=== PATIENT | male | born 1945 | race Caucasian/White ===

== ENCOUNTER 2020-09-21 06:00 | Outpatient (RCR) | payer MEDICARE, SELFPAY | END 2020-10-13 23:59 | disposition home or self-care (01) | LOC: MPO 06:00 | PROVIDERS: Referring Provider Family Medicine; Visit Provider Family Medicine | DX: I69.354 Hemiplegia and hemiparesis following cerebral infarction affecting left non-dominant side (principal) | CPT/HCPCS: 97110; 97112; 97140; 97162; 97166; 97530; 97535 ==

== ENCOUNTER 2020-10-14 06:00 | Outpatient (RCR) | payer MEDICARE, SELFPAY | END 2020-11-13 23:59 | disposition home or self-care (01) | LOC: MPO 06:00 | PROVIDERS: Referring Provider Family Medicine; Visit Provider Family Medicine | DX: I69.354 Hemiplegia and hemiparesis following cerebral infarction affecting left non-dominant side (principal) | CPT/HCPCS: 97110; 97112; 97116; 97140; 97535 ==

== ENCOUNTER 2020-11-14 06:00 | Outpatient (RCR) | payer MEDICARE, SELFPAY | END 2020-12-14 23:59 | disposition home or self-care (01) | LOC: MPO 06:00 | PROVIDERS: Referring Provider Family Medicine; Visit Provider Family Medicine | DX: I69.354 Hemiplegia and hemiparesis following cerebral infarction affecting left non-dominant side (principal) | CPT/HCPCS: 97110; 97112; 97140 ==

== ENCOUNTER → 2020-12-22 15:24 | Outpatient (BNVA) | payer OTHER, SELFPAY | PROVIDERS: Visit Provider Specialist | DX: M25.519 Pain in unspecified shoulder (principal); M75.02 Adhesive capsulitis of left shoulder; M79.2 Neuralgia and neuritis, unspecified | CPT/HCPCS: 73030 ==

== ENCOUNTER 2021-05-10 10:27 | Emergency (ER) | payer OTHER, MEDICARE, SELFPAY ==
[2021-05-10 10:28] VITALS: BP 137/62; PULSE 73; RESP 27; TEMP 37.9; O2SAT 97; BMI 28.3
[2021-05-10 10:41] VITALS: O2SAT 96
[2021-05-10 10:50] VITALS: BP 137/62; PULSE 73; RESP 27; TEMP 37.9; O2SAT 96
--- NOTE | 2021-05-10 11:18 | XR_ITS ---
WS: [id number] Portable AP upright chest, 05/10/2021 Clinical Data: cough/covid Comparison: None. Findings: No nodules, masses or effusions are seen. The heart is normal. The pacemaker generator is i n the left axilla with 2 leads ending in the heart. The pulmonary vascularity is not increased. No p neumothorax is seen. There is left basilar pulmonary opacity in the retrocardiac region which may rep resent acute pneumonia. There are clips in the right supraclavicular region. Monitor leads are on the chest wall. XR/XR chest 1V portable [id number] Impression: 1. Left basilar pulmonary opacity which could represent left lower lobe pneumon ia. 2. Cardiac pacemaker.
--- NOTE | 2021-05-10 11:25 | W.ED.COVID ---
HPI - COVID General: Chief Complaint: COVID symptoms Stated Complaint: COVID COMPLICATIONS Time Seen by Provider: 05/10/21 10:32 Triage information: Has fever, cough or shortness of breath. Exposure to COVID + person last 14 days History of Present Illness: HPI Narrative: 75-year-old male presents emergency room tested positive for Covid 3 to 4 days ago at [facility]. Previously had a stroke and has some aphasia. He is able answer that he feels okay but he does not really give any further answers. His oxygen saturations are normal. 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) Treatment prior to arrival: none COVID Results: No Data to Display Review of Systems General: Reports: ROS unobtainable due to medical condition PFSH ED PFSH: Medical History Accelerated essential hypertension Conductive hearing loss Diabetic neuropathy Male erectile dysfunction Peripheral vascular disease Type 2 diabetes mellitus Type 2 diabetes mellitus with other circulatory complications Family History Father Congestive heart failure Mother Cancer Social History Alcohol intake: current Alcohol intake frequency: holidays/special occasions only Current occupational status: disabled Physical Exam Const: GENERAL APPEARANCE: cooperative and comfortable ORIENTATION/CONSCIOUSNESS: Yes awake HENMT: COMMON NORMALS: normocephalic, atraumatic and hearing grossly normal bilaterally HEAD & SCALP: normocephalic and atraumatic Neck/C-Spine: COMMON NORMALS: no JVD Resp: COMMON NORMALS: normal respiratory effort, No retractions, No use of accessory muscles and clear to auscultation bilaterally AUSCULTATION: clear to auscultation bilaterally Cardio: COMMON NORMALS: no JVD, regular rate, regular rhythm and No murmurs present (Cardio) RATE: regular rate RHYTHM: regular rhythm GI: COMMON NORMALS: Soft to palpation and No hepatosplenomegaly present AUSCULTATION: Yes normoactive bowel sounds PALPATION: Yes Soft to palpation, No Tenderness to palpation present (GI), No Guarding due to palpation present (GI) and Yes No hepatosplenomegaly present Extremity: COMMON NORMALS: normal to inspection, capillary refill normal, no clubbing, cyanosis or edema, no calf tenderness and no pedal edema Skin: COMMON NORMALS: no rashes or lesions noted GENERAL SKIN EXAM: no rashes or lesions noted Course Vital Signs: Vital signs: Vital Signs Temperature 100.3 F H 05/10/21 10:50 Pulse Rate 77 05/10/21 14:37 Respiratory Rate 20 H 05/10/21 14:37 Blood Pressure 139/72 05/10/21 14:37 Pulse Oximetry 96 05/10/21 14:37 MDM - COVID MDM Narrative Medical decision making narrative: COVID patient with normal oxygen saturations. He has fairly significant difficulties with dysarthria and aphasia but confirmed with his this is his normal baseline. He has been quite weak due to the COVID but otherwise unremarkable. Will discharge patient home supportive cares monitor home oxygen sats follow-up with primary care doctor tomorrow return if has further problems. Medical Records Attestation: I reviewed the patient's medical records. Lab Data Attestation: I reviewed the patient's lab results. Result diagrams: 05/10/21 10:48 05/10/21 12:15 Labs: Radiology Impressions Chest X-Ray 05/10/21 11:18 Impression: 1. Left basilar pulmonary opacity which could represent left lower lobe pneumonia. 2. Cardiac pacemaker. Head CT 05/10/21 11:28 IMPRESSION: 1. No acute intracranial hemorrhage or edema. 2. Remote RIGHT MCA territory infarct with encephalomalacia and ex vacuole dilatation of the RIGHT lateral ventricle. 3. Additional mild chronic microvascular ischemic changes in the white matter. Laboratory Results WBC 2.1 10^3/uL (4.0-10.0) L 05/10/21 10:48 RBC 4.53 10^6/uL (4.1-5.3) 05/10/21 10:48 Hgb 14.6 g/dL (11.7-16.6) 05/10/21 10:48 Hct 43.0 % (42.0-52.0) 05/10/21 10:48 MCV 94.9 fl (80-94) H 05/10/21 10:48 MCH 32.2 pg (28.0-34.0) 05/10/21 10:48 MCHC 34.0 g/dL (30.0-36.0) 05/10/21 10:48 RDW 12.3 % (12.1-15.1) 05/10/21 10:48 Plt Count 133 10^3/cmm (130-400) 05/10/21 10:48 MPV 9.8 fL (7.4-10.4) 05/10/21 10:48 Neut % (Auto) 52.9 % 05/10/21 10:48 Lymph % (Auto) 32.5 % 05/10/21 10:48 [place] % (Auto) 13.7 % 05/10/21 10:48 Eos % (Auto) 0.9 % 05/10/21 10:48 Baso % (Auto) 0.0 % 05/10/21 10:48 Neut # (Auto) 1.12 10^3/uL (1.8-7.7) L 05/10/21 10:48 Lymph # (Auto) 0.7 10^3/uL (0.8-4.8) L 05/10/21 10:48 [place] # (Auto) 0.3 10^3/uL (0.2-0.9) 05/10/21 10:48 Eos # (Auto) 0.0 10^3/uL (0.0-0.8) 05/10/21 10:48 Baso # (Auto) 0.0 10^3/uL (0.0-0.1) 05/10/21 10:48 Nucleated RBC % (auto) 0 % 05/10/21 10:48 Nucleated RBCs # 0.0 /100WBC 05/10/21 10:48 Sodium 136 mmol/L (136-145) 05/10/21 12:15 Potassium 4.3 mmol/L (3.5-5.1) 05/10/21 12:15 Chloride 103 mmol/L (98-107) 05/10/21 12:15 Carbon Dioxide 20 mmol/L (22-29) L 05/10/21 12:15 Anion Gap 17.3 (5-19) 05/10/21 12:15 BUN 22 mg/dL (8-23) 05/10/21 12:15 Creatinine 1.0 mg/dL (0.7-1.2) 05/10/21 12:15 GFR Calculation Not Reportable 05/10/21 12:15 Glucose 92 mg/dL (65-115) 05/10/21 12:15 Calculated Osmolality 285 mOsm/kg (285-295) 05/10/21 12:15 Calcium 7.8 mg/dL (8.5-10.5) L 05/10/21 12:15 Total Bilirubin 0.3 mg/dL (0.15-1.2) 05/10/21 12:15 AST 39 U/L (0-40) 05/10/21 12:15 ALT 27 U/L (0-41) 05/10/21 12:15 Alkaline Phosphatase 100 IU/L (40-130) 05/10/21 12:15 Total Protein 5.3 g/dL (6.6-8.7) L 05/10/21 12:15 Albumin 3.7 g/dL (3.5-5.2) 05/10/21 12:15 Globulin 1.6 g/dL (1.3-4.6) 05/10/21 12:15 COVID Results: No Data to Display Discharge Plan Discharge Patient Disposition: Home Clinical Impression: COVID-19, CVA (cerebrovascular accident) Condition: Stable Prescriptions: No Action aspirin [Adult Low Dose Aspirin] 81 mg tablet,delayed release (DR/EC) 81 mg PO DAILY 0RF glipizide 5 mg tablet 5 mg PO .PRN 0RF multivitamin with iron PO 0RF glucosamine sulfate PO 0RF cholecalciferol (vitamin D3) 25 mcg (1,000 unit) capsule 25 mcg PO DAILY 0RF phytonadione (vitamin K1) 5 mg tablet 5 mg PO DAILY 0RF lisinopril 5 mg tablet 5 mg PO DAILY 0RF clopidogrel 75 mg tablet 75 mg PO DAILY 0RF metoprolol succinate 25 mg tablet extended release 24 hr 25 mg PO DAILY 0RF ascorbic acid (vitamin C) [C-1000] 1,000 mg tablet 500 mg PO BID 0RF cholecalciferol (vitamin D3) [Vitamin D3] 125 mcg (5,000 unit) tablet 125 mcg PO DAILY 0RF gabapentin 400 mg capsule 400 mg PO DAILY 0RF trazodone 50 mg tablet 25 mg PO DAILY 0RF atorvastatin 40 mg tablet 40 mg PO DAILY 0RF melatonin 10 mg tablet 10 mg PO DAILY 0RF Discharge Orders: Discharge ED (Routine); Ordered 05/10/21 Ordered By: Cade Jacobs Discharge Diet: Usual diet Discharge Activity: Increase activity as tolerated Patient Instructions: Opioid Safety Activity Restrictions/Additional Instructions: Monitor oxygen sats at home with pulse oximeter. Follow-up with your primary care doctor any worsening or change symptoms return. Coding Level of Care Code ED Production Lapping Machine Operator for Yovani Fwd Exam Comprehensive
--- NOTE | 2021-05-10 11:28 | CT_ITS ---
WS: [id number] CT HEAD NONCONTRAST HISTORY: Previous CVA, aphasia TECHNIQUE: Contiguous axial imaging performed through the brain in 2.5 mm imaging. Bone and soft tiss ue windows. Sagittal and coronal reformats reviewed. All CT scans at [facility] use at least one of these dose optimization techniques: automated exposure control; mA and/or kV adjustment per pa tient size (includes targeted exams where dose is matched to clinical indication); or iterative recon struction. DLP: 1176.44 mGy.cm COMPARISON: None available. Study is limited by motion artifact, particularly at the skull base. No acute hemorrhage or acute edema. Large prior infarct with encephalomalacia involving the RIGHT MCA territory. Majority of the infarct involves the RIGHT frontotemporal lobe. Additional chronic microv ascular ischemic changes bilaterally within the white matter. Volume loss in the RIGHT hemisphere res ulting in ex vacuole dilatation of the RIGHT lateral ventricle. Mild atrophy. Ventricles: Normal size with no hydrocephalus. No inferior displacement of cerebellar tonsils. Paranasal sinuses: Obscured by motion artifact. Mastoid air cells: Well pneumatized. Calvarium and scalp: Skull is intact with no soft tissue edema or swelling. CT/CT head wo con* [id number] IMPRESSION: 1. No acute intracranial hemorrhage or edema. 2. Remote RIGHT MCA territory infarct with encephalomalacia and ex vacuole dil atation of the RIGHT lateral ventricle. 3. Additional mild chronic microvascular ischemic changes in the white matter.
[2021-05-10 11:33] LABS: Eosinophils % 0.9 %; Hemoglobin 14.6 g/dL (11.7-16.6); Lymphocytes # 0.7 10^3/uL (0.8-4.8); Lymphocytes % 32.5 %; Mean Corpuscular Hemoglobin 32.2 pg (28.0-34.0); Mean Corpuscular Volume 94.9 fl (80-94); Mean Platelet Volume 9.8 fL (7.4-10.4); Monocytes # 0.3 10^3/uL (0.2-0.9); Monocytes % 13.7 %; Neutrophils # 1.12 10^3/uL (1.8-7.7); Neutrophils % 52.9 %; Nucleated Red Blood Cells % 0 %; Platelet Count 133 10^3/cmm (130-400); Red Blood Count 4.53 10^6/uL (4.1-5.3); Red Cell Distribution Width 12.3 % (12.1-15.1); White Blood Count 2.1 10^3/uL (4.0-10.0)
[2021-05-10 12:17] VITALS: BP 138/76; PULSE 78; RESP 22; O2SAT 98
[2021-05-10 13:29] LABS: Alanine Aminotransferase 27 U/L (0-41); Albumin Level 3.7 g/dL (3.5-5.2); Alkaline Phosphatase 100 IU/L (40-130); Anion Gap 17.3 (5-19); Aspartate Amino Transferase 39 U/L (0-40); Blood Urea Nitrogen 22 mg/dL (8-23); Calcium 7.8 mg/dL (8.5-10.5); Carbon Dioxide 20 mmol/L (22-29); Chloride 103 mmol/L (98-107); Creatinine Clr Calc Pharmacy 59.2764; Globulin 1.6 g/dL (1.3-4.6); Glucose 92 mg/dL (65-115); Osmolality Calculated 285 mOsm/kg (285-295); Potassium 4.3 mmol/L (3.5-5.1); Sodium 136 mmol/L (136-145); Total Bilirubin 0.3 mg/dL (0.15-1.2); Total Protein 5.3 g/dL (6.6-8.7)
--- NOTE | 2021-05-10 14:34 | PC.NURSE ---
MULTIPLE PHONE CALLS MADE WITH ABOUT TRANSPORTING PATIENT HOME. WAS CONCERNED THAT SHE WOULD BE UNABLE TO GET HIM INTO THE HOUSE IF HE WAS IN A WHEELCHAIR. EDUCATED THAT EMS CAN BRING PATIENT HOME AND MADE AWARE OF INSURANCE CLAIM. STATED THAT SHE WOULD RATHER TAKE THE PATIENT HOME AND CALL EMS TO HELP GET HIM IN THE HOUSE. PATIENT WHEELCHAIRED TO EXIT AND HELPED INTO CAR BY RITCHIE HOLLOWAY.
[2021-05-10 14:37] VITALS: BP 139/72; PULSE 77; RESP 20; O2SAT 96
== END 2021-05-10 14:39 | disposition home or self-care (01) ==
PROVIDERS: Emergency Provider Family Medicine
DX: U07.1 COVID-19 (principal); I63.9 Cerebral infarction, unspecified; Z79.82 Long term (current) use of aspirin; Z79.84 Long term (current) use of oral hypoglycemic drugs; Z79.02 Long term (current) use of antithrombotics/antiplatelets; I10 Essential (primary) hypertension; E11.40 Type 2 diabetes mellitus with diabetic neuropathy, unspecified
CPT/HCPCS: 36415; 70450; 71045; 80053; 85025; 99283